=== PATIENT | female | born 1960 | race Caucasian/White ===

== ENCOUNTER → 2018-04-16 08:04 | Outpatient (CLI) | payer OTHER, SELFPAY ==
--- NOTE | 2018-04-16 08:07 | BI_ITS ---
MAMMOGRAPHY - BILATERAL SCREENING REASON FOR EXAM: Female, 57 years old. Routine annual screening examination. PERTINENT HISTORY: Non-contributory. TECHNIQUE: Digital bilateral breast mainor (3D mammographic acquisition) in the CC and MLO projections. 2-D mediolateral oblique (MLO) and craniocaudad (CC) views of both breasts were obtained. CAD: Full Field Digital Mammography with Computer Added Detection was performed. COMPARISON: Comparison is made with prior study dated March 13, 2017 and February 11, 2016. FINDINGS: Breast Composition: The breasts are heterogeneously dense, which may obscure small masses. There are no dominant masses or suspicious calcifications. Stable scattered bilateral calcifications. No other significant abnormalities are identified. There has been no significant change since the prior study. BI/SCREENING MAMM (CAD), BILAT IMPRESSION: Stable bilateral screening mammogram. Yearly follow-up mammogram recommended. (A) ASSESSMENT CATEGORY: BIRADS Category 2: Benign. A letter regarding these results will be sent to the patient by the facility within 30 days. Approximately 10% of breast cancers are not detected by mammography. A normal mammogram should not delay biopsy of a clinically suspicious abnormality. [id number] Electronically Signed: Hector Bundy MD at 10:38 EST , Service support ,
== END ==
PROVIDERS: Family Provider Internal Medicine; PCP Internal Medicine; Referring Provider Obstetrics & Gynecology; Visit Provider Obstetrics & Gynecology
DX: Z12.31 Encounter for screening mammogram for malignant neoplasm of breast (principal)
CPT/HCPCS: 77063; 77067

== ENCOUNTER → 2019-04-24 07:59 | Outpatient (CLI) | payer OTHER, SELFPAY ==
--- NOTE | 2019-04-24 08:03 | BI_ITS ---
MAMMOGRAPHY - BILATERAL SCREENING REASON FOR EXAM: Female, 58 years old. Routine annual screening examination. PERTINENT HISTORY: Non-contributory. TECHNIQUE: Digital bilateral breast valeriy (3D mammographic acquisition) in the CC and MLO projections. 2-D mediolateral oblique (MLO) and craniocaudad (CC) views of both breasts were obtained. CAD: Full Field Digital Mammography with Computer Added Detection was performed. COMPARISON: Comparison is made with prior examination dated April 16, 2018 and March 13, 2017. FINDINGS: Breast Composition: The breasts are heterogeneously dense, which may obscure small masses. There are no dominant masses or suspicious calcifications. Stable scattered bilateral microcalcifications. There is no evidence of cluster. No other significant abnormalities are identified. There has been no significant change since the prior study. BI/SCREEN MAMM (CAD) W/VALERIY BILAT IMPRESSION: Stable bilateral screening mammogram. Yearly follow-up mammogram recommended. (A) ASSESSMENT CATEGORY: BIRADS Category 2: Benign. A letter regarding these results will be sent to the patient by the facility within 30 days. Approximately 10% of breast cancers are not detected by mammography. A normal mammogram should not delay biopsy of a clinically suspicious abnormality. [id number] Electronically Signed: Hector Bundy, at 9:01 EST , Service support ,
== END ==
PROVIDERS: Family Provider Internal Medicine; PCP Internal Medicine; Referring Provider Obstetrics & Gynecology; Visit Provider Obstetrics & Gynecology
DX: Z12.31 Encounter for screening mammogram for malignant neoplasm of breast (principal)
CPT/HCPCS: 77063; 77067

== ENCOUNTER → 2020-06-28 08:20 | Outpatient (CLI) | payer BC, SELFPAY ==
[2019-12-15 16:12] VITALS: BMI 25.6
--- NOTE | 2020-06-28 08:25 | BI_ITS ---
MAMMOGRAPHY - BILATERAL SCREENING REASON FOR EXAM: Female, 60 years old. Routine annual screening examination. PERTINENT HISTORY: Non-contributory. TECHNIQUE: Digital bilateral breast valeriy (3D mammographic acquisition) in the CC and MLO projections. 2-D mediolateral oblique (MLO) and craniocaudad (CC) views of both breasts were obtained. CAD: Full Field Digital Mammography with Computer Added Detection was performed. COMPARISON: Comparison is made with prior study dated 04/24/2019 and 04/16/2018. FINDINGS: Breast Composition: The breasts are heterogeneously dense, which may obscure small masses. There are no dominant masses or suspicious calcifications. Stable scattered bilateral microcalcifications. Stable benign appearing bilateral axillary lymph nodes. No other significant abnormalities are identified. There has been no significant change since the prior study. BI/SCRN MAMM (CAD)W/VALERIY BILAT IMPRESSION: Stable bilateral screening mammogram. Yearly follow-up mammogram recommended. (A) ASSESSMENT CATEGORY: BIRADS Category 2: Benign. A letter regarding these results will be sent to the patient by the facility within 30 days. Approximately 10% of breast cancers are not detected by mammography. A normal mammogram should not delay biopsy of a clinically suspicious abnormality. [id number] Electronically Signed: Hector Bundy MD at 9:14 EDT , Service support ,
== END ==
PROVIDERS: PCP Internal Medicine; Referring Provider Obstetrics & Gynecology; Visit Provider Obstetrics & Gynecology
DX: Z12.31 Encounter for screening mammogram for malignant neoplasm of breast (principal)
CPT/HCPCS: 77063; 77067

== ENCOUNTER 2020-11-13 16:34 | Emergency (ER) | payer BC, SELFPAY ==
[2020-11-13 16:36] VITALS: BP 211/119; PULSE 95; RESP 18; TEMP 37.4; O2SAT 97; BMI 25.4
--- NOTE | 2020-11-13 17:28 | RAD_ITS ---
STUDY: X-RAY CHEST REASON FOR EXAM: Female, 60 years old. syncope TECHNIQUE: PA and lateral COMPARISON: None. FINDINGS: The lungs are clear and expanded. There is no demonstrated pleural abnormality. Normal size heart. Normal mediastinum and anthony. Normal visualized pulmonary arteries. Normal visualized aortic arch and descending thoracic aorta. Dorsal spine demonstrates mild spondylosis. Normal visualized ribs, clavicles, and shoulders. There is no demonstrated abnormality of the visualized soft tissue structures of the upper abdomen. RAD/Chest PA and Lateral IMPRESSION: No acute cardiopulmonary pathology. Electronically Signed: Augusto Lopez MD at 21:02 EDT , Service support ,
--- NOTE | 2020-11-13 17:28 | EKG12_ITS ---
Test Reason : SYNCOPE Blood Pressure : / mmHG Vent. Rate : 083 BPM Atrial Rate : 083 BPM P-R Int : 128 ms QRS Dur : 082 ms QT Int : 374 ms P-R-T Axes : 049 029 046 degrees QTc Int : 439 ms Normal sinus rhythm Normal ECG Confirmed by GURDEEP FIELD, JOSIAH ([id number]), editor book CONSTANTINO VARGAS ([id number]) on 11/15/2020 8:56:07 AM Referred By: LISA Confirmed By:JOSIAH MACKENZIE MD
--- NOTE | 2020-11-13 17:54 | EX.ED.DYSGE1 ---
HPI History of Present Illness Chief Complaint: Syncope Informant: patient Narrative Narrative: Patient is a 60-year-old female with history of IBS, hypertension and hyperlipidemia presenting after syncopal episode. Patient states last night around 230 she got up at night to have a glass of water. She was standing at the sink which started feel lightheaded. Patient states she felt woozy. She remembers she woke up on the ground. She got herself up and took her self to bed. Patient did cut the back of her head on the corner of an [employer] telephone stand. She currently has a mild headache. She denies any history of syncope. She is unaware last tetanus shot is but states she does not want another one because she does not like them. She is not on any oral anticoagulation. She thinks that maybe her blood sugar was low or she was just dehydrated. Her states that she come to emergency room to get evaluated further. She currently denies any other complaints. [facility] Medical History (Updated 11/13/20 @ 21:[address] Karuna Pérez, DO) Anemia GERD (gastroesophageal reflux disease) GI problem History of migraine headaches Hypertension Hypertriglyceridemia IBS (irritable bowel syndrome) Multiple sclerosis Osteopenia Home Medications promethazine 25 mg PO Q6H PRN PRN #20 tab 07/27/15 [Rx Last Taken Unknown] ashwaghanda PO 12/10/19 [History Last Taken Unknown] folic acid-vit B6-vit B12 0.8 mg-50 mg-100 mcg tablet 1 tab PO DAILY 12/10/19 [History Last Taken Unknown] magnesium glycinate 100 mg tablet 100 mg PO DAILY 12/10/19 [History Last Taken Unknown] fqzlpltf-ohcoatis-yilbsezt 3 mg-lutein 3 mg-herbal no219 200 mg tablet tab PO 12/10/19 [History Last Taken Unknown] omega 7-elw-she-fish oil 290 mg-430 mg-1.4 gram capsule cap PO 12/10/19 [History Last Taken Unknown] vitamin B complex 1 tab PO DAILY 12/10/19 [History Last Taken Unknown] vitamin D supreme PO 12/10/19 [History Last Taken Unknown] A-EB/H6 PO 06/14/20 [History Last Taken Unknown] ascorbic acid (vitamin C) 500 mg capsule mg PO BID cap 06/14/20 [History Last Taken Unknown] Allergy/AdvReac Type Severity Reaction Status Date / Time naproxen AdvReac Nausea Verified 11/13/20 16:34 tramadol HCl [From Ultram] AdvReac Nausea Verified 11/13/20 16:34 Family History Mother Arthritis Osteoporosis Thyroid disorder Father Myocardial infarction, Onset Age: 47 Heart disease Hypertension Hyperlipemia COPD (chronic obstructive pulmonary disease) Mononucleosis Brother Hypertension Grandmother CVA (cerebral vascular accident) Grandfather CVA (cerebral vascular accident) Social History Smoking Status: Never smoker alcohol intake: current alcohol intake frequency: holidays/special occasions only Alcohol type: wine substance use type: does not use what type of physical activity do you participate in: walking and running frequency: 1-2 times per week ROS ROS ED Constitutional Constitutional ED: Reports other Details: Positive lightheaded, syncope ; Denies chills, fever(s) or malaise Eyes Eyes: Denies blurry vision or loss of vision ENT ENT ED: Denies rhinorrhea or sore throat Cardiovascular Cardiovascular: Denies chest pain or dizziness Respiratory/Chest Respiratory/Chest: Denies cough or dyspnea Gastrointestinal Gastrointestinal: Denies nausea or vomiting Genitourinary Genitourinary ED: Denies dysuria or hematuria Musculoskeletal Musculoskeletal: Denies arthralgias or myalgias Integumentary Reports Abrasions; Denies rash or wounds Neurologic Neurologic: Reports headache(s); Denies focal weakness Psychiatric Psychiatric: Denies anxiety or behavioral changes EXAM Physical Exam Const Vital Signs: 11/13/20 16:36 11/13/20 18:12 11/13/20 20:31 Temperature 99.3 F H Temperature Source Temporal Pulse Rate 95 85 Pulse Rate [Lying] 91 Pulse Rate [Sitting] 85 Pulse Rate [Standing] 91 Respiratory Rate 18 16 Blood Pressure 211/119 H 217/116 H 168/97 H Blood Pressure [Lying] 210/106 H Blood Pressure [Sitting] 217/116 H Blood Pressure [Standing] 218/121 H Blood Pressure Mean 149 149 120 Blood Pressure Mean [Lying] 140 Blood Pressure Mean [Sitting] 149 Blood Pressure Mean [Standing] 153 Pulse Ox 97 100 Oxygen Delivery Method Room Air Room Air 11/13/20 21:20 Temperature Temperature Source Pulse Rate 76 Pulse Rate [Lying] Pulse Rate [Sitting] Pulse Rate [Standing] Respiratory Rate 16 Blood Pressure 151/94 H Blood Pressure [Lying] Blood Pressure [Sitting] Blood Pressure [Standing] Blood Pressure Mean 113 Blood Pressure Mean [Lying] Blood Pressure Mean [Sitting] Blood Pressure Mean [Standing] Pulse Ox 98 Oxygen Delivery Method Room Air Positive well nourished, well developed and no apparent distress General Appearance ED: well developed HEENT Reports normocephalic, TM's clear and moist mucous membranes HEENT Narrative: Small hematoma at the vertex of the scalp with overlying abrasion, no active bleeding atraumatic and trauma Nose: no nasal discharge External Ear: external ears normal Tympanic Membrane ED: Yes TM's clear Mouth ED: Yes moist mucous membranes normal Eyes PERRL and EOMs intact bilaterally Neck full ROM, supple and no meningeal signs Chest Wall inspection of chest normal Resp normal respiratory effort, normal air movement and clear to auscultation bilaterally Cardio regular rate and regular rhythm GI normal to inspection, nondistended, normoactive bowel sounds Extremity normal to inspection and full ROM Neuro oriented x3, CN's II-XII intact bilaterally, no focal motor deficits and no sensory deficits noted Sensorium / Orientation: alert Motor Exam: strength 5/5 throughout; Negative for general weakness Psych mental status grossly normal and thought process normal Skin no rashes or lesions noted Skin Narrative: 2 cm linear laceration at the vertex of the scalp. Wound edges closely approximated. No active bleeding. MDM MDM MDM Narrative Medical decision making narrative: Patient evaluated for syncopal episode that happened at 2:30 in the morning, over 12 hours prior to arrival. Patient currently has no complaints except for mild headache. She is hypertensive on arrival. This improves in the ER without any intervention. She states that she does have a history of hypertension also gets nervous about being in the ER as well as being under more stress lately. Cardiac work-up is largely negative. Chest x-ray does not show any acute process. CT of the brain does not show any acute traumatic injury. Patient declines tetanus in the emergency room. She does have a laceration to her scalp but as we are greater than 12 hours out and she is no longer bleeding, will defer primary closure and let heal by secondary intent. Patient is agreeable with this. Patient will follow up with her PCP for her hypertension as well as this episode of syncope. She is counseled on return precautions. Patient and verbalized agreement understand with this plan. Lab Data Attestation: I reviewed the patient's lab results. Labs: Laboratory Results - last 24 hr 11/13/20 11/13/20 18:07 18:07 WBC 5.0 RBC 4.16 L Hgb 12.5 Hct 37.2 MCV 89.4 MCH 30.0 MCHC 33.6 RDW Std Deviation 44.6 H RDW Coeff of Shiela 13.6 Plt Count 218 MPV 9.2 Immature Gran % (Auto) 0.200 Neut % (Auto) 55.7 Lymph % (Auto) 32.7 [place] % (Auto) 8.2 Eos % (Auto) 2.6 Baso % (Auto) 0.6 Absolute Neuts (auto) 2.8 Absolute Lymphs (auto) 1.63 Nucleated RBC % 0 Sodium 141 Potassium 3.7 Chloride 105 Carbon Dioxide 28.0 Anion Gap 8 BUN 12 Creatinine 0.82 Estim Creat Clear Calc 57.70 Est GFR (MDRD) Af Amer 91 Est GFR (MDRD) Non-Af 75 BUN/Creatinine Ratio 14.6 Glucose 88 Calcium 9.1 Total Bilirubin 0.40 AST 62 H ALT 102 H Alkaline Phosphatase 96 Troponin I High Sens 8 Total Protein 7.6 Albumin 4.1 Globulin 3.5 Albumin/Globulin Ratio 1.2 Radiography Chest X-Ray - ED: 1 View, Read by ED Physician, Read by Radiologist and No Acute Disease Diagnostic Testing: Radiology Impression Chest X-Ray 11/13/20 17:28 IMPRESSION: No acute cardiopulmonary pathology. Electronically Signed: Augusto Lopez MD at 21:02 EDT , Service support , Brain CT 11/13/20 19:10 IMPRESSION: 1. No acute abnormality, no trauma. 2. Mild to moderate chronic small vessel ischemic disease of white matter. Electronically Signed: Xu Bowles MD at 19:50 EDT Tel , Service support , Rhythm Strip Rhythm Strip: Sinus Rhythm Rate: 83 Ectopy: None EKG Initial EKG: Attestation: I personally reviewed and interpreted this EKG as follows: Interpretation: Sinus Rhythm Comments: Normal sinus rhythm at a rate of 83 Normal axis Normal intervals Normal ST segments Discharge Plan Triage Chief Complaint: Syncope ED Provider: Karuna Pérez Dx/Rx/DC Orders Clinical Impression: Syncope, Hypertension, Laceration of head Instructions: ED Head Injury (Adult), ED Hypertension, Established, ED Fainting, Uncertain Cause Prescriptions: No Action PhytoMulti 3-3-200 mg tablet PO RF: 0 Complex B-100 Tablet Extended Release 1 tab PO DAILY RF: 0 vitamin D supreme PO RF: 0 omega 1-mbk-azg-fish oil 290 mg-430 mg-1.4 gram capsule 290-430-1.4 mg-mg-gram capsule PO RF: 0 folic acid-vit B6-vit B12 0.8 mg-50 mg-100 mcg tablet 0.8-50-100 mg-mg-mcg tablet 1 tab PO DAILY RF: 0 magnesium glycinate 100 mg tablet 100 mg PO DAILY RF: 0 ashwaghanda PO RF: 0 ascorbic acid (vitamin C) 500 mg capsule PO BID RF: 0 A-EB/H6 PO RF: 0 promethazine 25 MG tablet 25 mg PO Q6H PRN PRN (Reason: Nausea) Qty: 20 RF: 0 Primary Care Provider: Freda Orr Referrals: Freda Orr MD [Primary Care Provider] - Disposition Disposition: Home, Self Care Discharge Date/Time: 11/13/20 21:24
[2020-11-13 18:12] VITALS: BP 210/106; BP 217/116; BP 218/121; PULSE 85; PULSE 91; RESP 16; O2SAT 100
[2020-11-13 18:17] LABS: Absolute Lymphocyte Count 1.63 X10^3/uL (0.83-4.51); Absolute Neutrophil Count 2.8 X10^3/uL (2.0-7.7); Basophil# 0.03 X10^3/uL; Basophil% 0.6 % (0-1); Eosinophil# 0.13 X10^3/uL; Eosinophils% 2.6 % (0-5); Hematocrit 37.2 % (37-47); Hemoglobin 12.5 g/dL (12.0-15.0); Lymphocyte # 1.63 X10^3/ul (0.83-4.51); Lymphocyte % 32.7 % (19-41); Mean Corp Hgb Conc 33.6 g/dL (32-36); Mean Corpuscular Volume 89.4 fL (81-99); Mean Platelet Vol. 9.2 fl (6.2-12.0); Monocyte# 0.41 X10^3/uL; Monocyte% 8.2 % (0-10); NRBC Flagged by Analyzer 0 % (0-5); Neutrophil # 2.78 X10^3/uL (2.7-7.7); Neutrophil % 55.7 % (47-70); Platelet Count 218 K/mm3 (150-450); RBC Distribution Width CV 13.6 % (11.6-14.6); RBC Distribution Width SD 44.6 fl (35.1-43.9); Red Blood Count 4.16 M/mm3 (4.2-5.4)
[2020-11-13 18:35] LABS: ALB/GLOB Ratio 1.2 RATIO (0.9-2.4); AST(SGOT) 62 U/L (15-37); Alanine Aminotransfer ALT/SGPT 102 U/L (13-56); Albumin, Serum 4.1 g/dL (3.2-5.0); Alkaline Phosphatase 96 U/L (45-117); Anion Gap 8 (5-15); BUN 12 mg/dL (7-18); BUN/Creat Ratio 14.6 RATIO (10-20); Calcium,Total 9.1 mg/dL (8.5-10.1); Chloride 105 mmol/L (98-107); Creatinine, Serum 0.82 mg/dL (0.55-1.02); EST Glomerular Filtration Rate 75 mL/min (>60); Est Glom Filt Rate - Afr Amer 91 mL/min (>60); Globulin 3.5 g/dL (2.2-4.2); Glucose 88 mg/dL (74-106); Potassium 3.7 mmol/L (3.5-5.1); Protein, Total 7.6 g/dL (6.4-8.2); Sodium Level 141 mmol/L (136-145); Troponin-I HS 8 pg/mL (3.0-54.0)
[2020-11-13 19:00] LABS: Mucous, Urine 0 SEEN /hpf (<or=2+); Red Blood Cells-Urine 0 SEEN /hpf (0-5); Squamous Epithelial Cells - UA 0 SEEN /hpf (5-10)
--- NOTE | 2020-11-13 19:10 | CT_ITS ---
STUDY: CT BRAIN WITHOUT CONTRAST REASON FOR EXAM: Female, 60 years old. Head injury RADIATION DOSAGE (If Supplied By Facility): CTDIvol = ( 44.99 ) mGy, DLP = ( 745.49 ) mGycm TECHNIQUE: Transaxial CT imaging of the brain was performed without administration of intravenous contrast material. Individualized dose optimization techniques were used for this CT. COMPARISON: 27 Jul 2015 FINDINGS: Brain parenchyma is without focal lesions, mass effect, acute intracranial hemorrhage, extra parenchymal fluid collections, hydrocephalus or herniation. There are scattered mild to moderate prominently subcortical white matter hypodensities. The skull is intact. There is a small left parietal scalp hematoma. CT/Brain/Head without Contrast IMPRESSION: 1. No acute abnormality, no trauma. 2. Mild to moderate chronic small vessel ischemic disease of white matter. Electronically Signed: Xu Bowles MD at 19:50 EDT Tel , Service support ,
[2020-11-13 20:31] VITALS: BP 168/97
[2020-11-13 21:20] VITALS: BP 151/94; PULSE 76; RESP 16; O2SAT 98; O2SAT 99
[2020-11-13 23:11] LABS: Bacteria RARE /hpf (None Seen); Color, Urine Straw (Yellow); Glucose, Dipstick NEGATIVE (Normal); Ketone-Dipstick Negative (Negative); Leukocyte Esterase-Dipstick 100 /ul (Negative); Nitrite-Dipstick Negative (Negative); Occult Blood-Urine 10 /ul (Negative); Protein-Dipstick Negative (Negative); Specific Gravity, Urine 1.005 (1.002-1.030); Urine Bilirubin Dipstick Negative (Negative); Urine Clarity Clear (Clear); Urine Urobilinogen Normal (Normal); Urine pH 6.5 (5.0 - 8.0); White Blood Cells 0-5 SEEN /hpf (0-5)
== END 2020-11-13 21:24 | disposition home or self-care (01) ==
PROVIDERS: Emergency Provider Emergency Medicine; PCP Internal Medicine
DX: R55 Syncope and collapse (principal); I10 Essential (primary) hypertension; S01.91XA Laceration without foreign body of unspecified part of head, initial encounter; X58.XXXA Exposure to other specified factors, initial encounter
CPT/HCPCS: 70450; 71046; 80053; 81001; 84484; 85025; 93005; 99285; A4216

== ENCOUNTER → 2020-11-16 11:43 | Outpatient (CLI) | payer BC, SELFPAY ==
[2020-11-16 15:51] LABS: Vitamin D,25 Hydroxy 44.2 ng/mL
[2020-11-16 15:54] LABS: Hemoglobin A1c 5.3 % (3.8-5.6)
[2020-11-16 16:00] LABS: ALB/GLOB Ratio 1.1 RATIO (0.9-2.4); AST(SGOT) 62 U/L (15-37); Alanine Aminotransfer ALT/SGPT 100 U/L (13-56); Albumin, Serum 4.2 g/dL (3.2-5.0); Alkaline Phosphatase 95 U/L (45-117); Anion Gap 7 (5-15); BUN 15 mg/dL (7-18); BUN/Creat Ratio 17.9 RATIO (10-20); Calcium,Total 9.2 mg/dL (8.5-10.1); Chloride 104 mmol/L (98-107); Cholesterol 246 mg/dL (200); Creatinine, Serum 0.84 mg/dL (0.55-1.02); EST Glomerular Filtration Rate 74 mL/min (>60); Est Glom Filt Rate - Afr Amer 89 mL/min (>60); Globulin 3.8 g/dL (2.2-4.2); Glucose 89 mg/dL (74-106); High Density Lipoprotein 86 mg/dL; Potassium 4.1 mmol/L (3.5-5.1); Sodium Level 137 mmol/L (136-145); Triglycerides 52 mg/dL; Very Low Density Lipoprotein 10 mg/dL (5-40)
== END ==
PROVIDERS: PCP Internal Medicine; Referring Provider Internal Medicine; Visit Provider Internal Medicine
DX: I10 Essential (primary) hypertension (principal); E78.1 Pure hyperglyceridemia; R55 Syncope and collapse; M85.80 Other specified disorders of bone density and structure, unspecified site
CPT/HCPCS: 36415; 80053; 80061; 82306; 83036; 84443

== ENCOUNTER → 2020-12-03 08:53 | Outpatient (CLI) | payer BC, SELFPAY ==
--- NOTE | 2020-12-03 08:53 | US_ITS ---
EXAM: US ABDOMEN LIMITED, RIGHT UPPER QUADRANT CLINICAL INDICATION: Elevated LFT TECHNIQUE: Real-time ultrasound of the right upper quadrant with image documentation. This report was created using [employer] report generation technology. COMPARISON: None. FINDINGS: LIVER: Increased echogenicity of the liver is nonspecific but most commonly associated with hepatic steatosis. No hepatic masses. GALLBLADDER: Unremarkable. No shadowing gallstone. No gallbladder wall thickening is demonstrated. No pericholecystic fluid. Negative sonographic Mohr''s sign. COMMON BILE DUCT: Unremarkable as visualized. The proximal common bile duct is within normal limits for the patient''s age. PANCREAS: Slight increased echogenicity of the pancreas. No pancreatic ductal dilatation. RIGHT KIDNEY: Unremarkable. There is no hydronephrosis. No shadowing calculus. No focal lesion or perinephric collection is demonstrated. US/Liver IMPRESSION: Increased echogenicity of the liver is nonspecific but most commonly associated with hepatic steatosis. Electronically Signed: Prince Leigh MD (Brooks) at 18:48 EDT , Service support ,
== END ==
PROVIDERS: PCP Internal Medicine; Referring Provider Internal Medicine; Visit Provider Internal Medicine
DX: R79.89 Other specified abnormal findings of blood chemistry (principal)
CPT/HCPCS: 76705

== ENCOUNTER 2021-05-16 09:57 | Outpatient (CLI) | payer BC, SELFPAY ==
[2021-05-19 22:09] LABS: HPV APTIMA, High Risk Negative (Negative)
== END 2021-05-16 23:59 | disposition home or self-care (01) ==
LOC: LABSPEC 09:58
PROVIDERS: PCP Internal Medicine; Visit Provider Obstetrics & Gynecology
DX: Z12.4 Encounter for screening for malignant neoplasm of cervix (principal)
CPT/HCPCS: 87624; 88175; G0145

== ENCOUNTER 2021-06-29 08:53 | Outpatient (CLI) | payer BC, SELFPAY ==
--- NOTE | 2021-06-29 08:54 | BI_ITS ---
MAMMOGRAPHY - BILATERAL SCREENING 3-D TOMOSYNTHESIS REASON FOR EXAM: Female, 61 years old. SCREENING PERTINENT HISTORY: No significant family history. TECHNIQUE: 2-D mammograms and 3-D Tomosynthesis of the breast (s) were performed. CAD was performed. COMPARISON: 06/28/2020 FINDINGS: The breast composition is heterogeneously dense that can obscure small breast masses. Scattered benign calcifications are seen. No dense spiculated masses or suspicious microcalcifications are identified. No architectural distortion is identified. There is no skin thickening or retraction. There has been no significant change since the prior study. BI/SCRN MAMM (CAD)W/VALERIY BILAT IMPRESSION: No mammographic signs of malignancy. Routine yearly mammograms recommended. ASSESSMENT CATEGORY: BIRADS Category 1: Negative. A letter regarding these results will be sent to the patient by the facility within 30 days. FOLLOW UP RECOMMENDATION: Yearly follow up mammogram recommended. (A) Approximately 10% of breast cancers are not detected by mammography. A normal mammogram should not delay biopsy of a clinically suspicious abnormality. Electronically Signed: Ari Stephens MD at 10:01 EDT ,
== END 2021-06-29 23:59 | disposition home or self-care (01) ==
LOC: OPBI 08:53
PROVIDERS: PCP Internal Medicine; Referring Provider Obstetrics & Gynecology; Visit Provider Obstetrics & Gynecology
DX: Z12.31 Encounter for screening mammogram for malignant neoplasm of breast (principal)
CPT/HCPCS: 77063; 77067

== ENCOUNTER 2022-03-20 01:30 | Emergency (ER) | payer BC, SELFPAY ==
[2022-03-20 01:30] VITALS: BP 179/97; PULSE 81; RESP 16; TEMP 36.6; O2SAT 98; BMI 25.3
--- NOTE | 2022-03-20 01:52 | EKG12_ITS ---
Test Reason : DYSRHYTHMIA Blood Pressure : / mmHG Vent. Rate : 079 BPM Atrial Rate : 079 BPM P-R Int : 126 ms QRS Dur : 078 ms QT Int : 398 ms P-R-T Axes : 076 064 059 degrees QTc Int : 456 ms Normal sinus rhythm Normal ECG Confirmed by GURDEEP FIELD, JOSIAH ([id number]), graphics editor CONSTANTINO VARGAS ([id number]) on 03/21/2022 10:45:35 AM Referred By: LOR Confirmed By:JOSIAH MACKENZIE MD
--- NOTE | 2022-03-20 01:53 | ED.VIS.GI ---
HPI HPI - GI History of Present Illness Chief Complaint: Nausea/Vomiting Informant: patient and spouse/S.O. Abdominal Pain/Flank Pain Onset: Hours (3-4) Context: Gradual Onset Timing: Continuous Quality: Aching Location: Epigastric Current Severity: Moderate Maximum Severity: Moderate Worsened by: - (vomiting) Relieved by: Nothing Nausea/Vomiting/Emesis GI Symptom: Positive for Nausea and Vomiting Onset: Hours (3-4) Quality: Positive for Nonbilious; Negative for Blood streaks, Coffee ground or Hematemesis Severity: Severe Diarrhea/Melena/Hematochezia GI Symptom: Negative for Diarrhea, Melena or Hematochezia Associated Symptoms Associated Symptoms: Negative for Dysuria, Frequency or Hematuria Narrative Narrative: Patient has been vomiting food and gastric contents and light yellow/clear fluid for the past couple hours along with epigastric discomfort. No radiation into her back or elsewhere. No history of abdominal surgeries. States it feels like gastritis she had in the past. No recent alcohol use. Has been taking Excedrin Migraine most days of this past week, but no other OTC medications. No known sick contacts with similar symptoms. No fevers or chills. No diarrhea, but she has only been symptomatic for several hours. [facility] Medical History (Updated 03/20/22 @ 02:[address] Mook Newell MD) Anemia GERD (gastroesophageal reflux disease) GI problem History of migraine headaches Hypertension Hypertriglyceridemia IBS (irritable bowel syndrome) Multiple sclerosis Osteopenia Home Medications promethazine 25 mg tablet 25 mg PO Q6H PRN PRN Nausea #20 tabs 07/27/15 [Rx Last Taken Unknown] ashwaghanda PO 12/10/19 [History Last Taken Unknown] folic acid-vit B6-vit B12 0.8 mg-50 mg-100 mcg tablet (Homocysteine Formula) 1 tab PO DAILY 12/10/19 [History Last Taken Unknown] magnesium glycinate 100 mg tablet 100 mg PO DAILY 12/10/19 [History Last Taken Unknown] ddugyhkl-mnxiuquf-bwjgmcsc 3 mg-lutein 3 mg-herbal no219 200 mg tablet (PhytoMulti) tab PO 12/10/19 [History Last Taken Unknown] omega 2-xft-pcw-fish oil 290 mg-430 mg-1.4 gram capsule (EPA-DHA 720) cap PO 12/10/19 [History Last Taken Unknown] vitamin B complex (Complex B-100 tablet,extended release) 1 tab PO DAILY 12/10/19 [History Last Taken Unknown] vitamin D supreme PO 12/10/19 [History Last Taken Unknown] A-EB/H6 PO 06/14/20 [History Last Taken Unknown] ascorbic acid (vitamin C) 500 mg capsule mg PO BID 06/14/20 [History Last Taken Unknown] amlodipine 5 mg-olmesartan 20 mg tablet 1 tab PO DAILY #90 tabs 07/13/21 [Rx Last Taken Unknown] ondansetron 4 mg disintegrating tablet 8 mg PO Q8H PRN PRN Nausea #20 tabs 03/20/22 [Rx Last Taken Unknown] Allergy/AdvReac Type Severity Reaction Status Date / Time naproxen AdvReac Nausea Verified 03/20/22 01:33 tramadol HCl [From Ultram] AdvReac Nausea Verified 03/20/22 01:33 Family History Mother Arthritis Osteoporosis Thyroid disorder Father Myocardial infarction, Onset Age: 47 Heart disease Hypertension Hyperlipemia COPD (chronic obstructive pulmonary disease) Mononucleosis Brother Hypertension Grandmother CVA (cerebral vascular accident) Grandfather CVA (cerebral vascular accident) Social History Smoking Status: Never smoker alcohol intake: current alcohol intake frequency: holidays/special occasions only Alcohol type: wine substance use type: does not use what type of physical activity do you participate in: walking and running frequency: 1-2 times per week ROS ROS ED Constitutional Constitutional ED: Reports malaise; Denies chills or fever(s) Eyes Eyes: Denies change in vision or diplopia ENT ENT ED: Denies rhinorrhea or sore throat Cardiovascular Cardiovascular: Denies chest pain or palpitations Respiratory/Chest Respiratory/Chest: Denies cough or dyspnea Gastrointestinal Gastrointestinal: Reports abdominal pain, nausea and vomiting; Denies diarrhea Genitourinary Genitourinary ED: Denies dysuria or hematuria Musculoskeletal Musculoskeletal: Denies back pain or neck pain Integumentary Denies abscess or rash Neurologic Neurologic: Denies headache(s), paresthesias or weakness Psychiatric Psychiatric: Denies anxiety or suicidal thoughts EXAM Physical Exam Const Vital Signs: 03/20/22 01:30 03/20/22 04:15 Temperature 97.8 F Temperature Source Oral Pulse Rate 81 86 Respiratory Rate 16 16 Blood Pressure 179/97 H 141/88 H Blood Pressure Mean 124 Pulse Ox 98 97 Oxygen Delivery Method Room Air Positive well nourished and well developed General Appearance ED: well developed and NAD HEENT Reports moist mucous membranes normocephalic and atraumatic Eyes PERRL and EOMs intact bilaterally Neck full ROM and supple Resp normal respiratory effort and clear to auscultation bilaterally Cardio regular rate, regular rhythm and no murmurs GI non-distended GI Narrative: Tender in epigastrium, no guarding or rebound. No other areas of tenderness including right upper quadrant. Soft abdomen nondistended with normal bowel sounds present. Auscultation: normoactive bowel sounds Palpation: soft Back/Spine no CVA tenderness General Back: other FROM Extremity normal to inspection General Extremety ED: Negative for edema, pulses abnormal or tenderness General Extremity: Negative for edema or pulses abnormal Neuro oriented x3, CN's II-XII intact bilaterally and no sensory deficits noted Sensorium / Orientation: awake and alert Motor Exam: strength 5/5 throughout Skin no rashes or lesions noted and no wounds MDM MDM MDM Narrative Medical decision making narrative: Patient does potentially have gastritis but differential also includes biliary pathology, pancreatitis, atypical presentation of acute coronary syndrome. EKG interpreted by myself is normal with no acute ischemic abnormalities or dysrhythmias, and her troponin is also negative making this less likely to be cardiac related. The rest of her labs were all normal. Her white blood count is at the high end of the normal range with a slight trend toward left shift but no bands, her liver enzymes and lipase are all normal. Borderline prerenal azotemia but her renal function is normal. She was given fluids here, Zofran and and no other medications but on reevaluation is feeling much better. She is not having much in the way of any discomfort. Considering the possibility of biliary etiologies, I did a bedside ultrasound myself. She has a negative sonographic Mohr's, the gallbladder is firmly in the right upper quadrant and not the epigastrium, the gallbladder wall is grossly normal without any obvious evidence of pericholecystic fluid, nor does she have any cholelithiasis. Therefore my suspicion for this being biliary in etiology is much lower afterwards. She was given a p.o. challenge and tolerated it well. Certainly could be viral etiology here. Will be offered a GI cocktail/Mylanta prior to being discharged, will give her a prescription for Zofran and advised close outpatient follow-up or returning if worse. She is comfortable with that plan. Lab Data Attestation: I reviewed the patient's lab results. Labs: Laboratory Results - last 24 hr 03/20/22 03/20/22 02:00 02:00 WBC 10.5 RBC 4.34 Hgb 13.0 Hct 39.1 MCV 90.1 MCH 30.0 MCHC 33.2 RDW Std Deviation 43.4 RDW Coeff of Shiela 13.1 Plt Count 207 MPV 9.9 Immature Gran % (Auto) 0.500 Neut % (Auto) 86.2 H Lymph % (Auto) 7.6 L Harlan % (Auto) 4.7 Eos % (Auto) 0.6 Baso % (Auto) 0.4 Absolute Neuts (auto) 9.1 H Absolute Lymphs (auto) 0.80 L Nucleated RBC % 0 Sodium 138 Potassium 3.7 Chloride 103 Carbon Dioxide 28.0 Anion Gap 7 BUN 14 Creatinine 0.94 Estim Creat Clear Calc 49.71 Est GFR (MDRD) Af Amer 78 Est GFR (MDRD) Non-Af 65 BUN/Creatinine Ratio 15.0 Glucose 156 H Calcium 9.6 Total Bilirubin 0.50 AST 20 ALT 20 Alkaline Phosphatase 104 Troponin I High Sens 5 Total Protein 7.8 Albumin 4.5 Globulin 3.3 Albumin/Globulin Ratio 1.4 Lipase 59 L Rhythm Strip Rhythm Strip: Sinus Rhythm Rate: 80 Ectopy: None EKG Initial EKG: Attestation: I personally reviewed and interpreted this EKG as follows: Interpretation: Sinus Rhythm and No Acute Injury Pattern Comments: Normal EKG Discharge Plan Triage Chief Complaint: Nausea/Vomiting ED Provider: Mook Newell Dx/Rx/DC Orders Clinical Impression: Acute gastritis without bleeding, Acute epigastric pain Instructions: ED Gastritis (Adult), ED Epigastric Pain Uncertain Cause Prescriptions: New ondansetron [ondansetron] 4 MG tablet 8 mg PO Q8H PRN PRN (Reason: Nausea) Qty: 20 0RF No Action PhytoMulti 3-3-200 mg tablet PO Complex B-100 Tablet Extended Release 1 tab PO DAILY vitamin D supreme PO omega 7-wyz-amc-fish oil 290 mg-430 mg-1.4 gram capsule 290-430-1.4 mg-mg-gram capsule PO folic acid-vit B6-vit B12 0.8 mg-50 mg-100 mcg tablet 0.8-50-100 mg-mg-mcg tablet 1 tab PO DAILY magnesium glycinate 100 mg tablet 100 mg PO DAILY ashwaghanda PO ascorbic acid (vitamin C) 500 mg capsule PO BID Rx Instructions: 2 tabs BID A-EB/H6 PO Rx Instructions: 2 drops a day promethazine 25 MG tablet 25 mg PO Q6H PRN PRN (Reason: Nausea) Qty: 20 0RF amlodipine-olmesartan 5-20 mg tablet 1 tab PO DAILY Qty: 90 3RF Primary Care Provider: Freda Orr Referrals: Freda Orr MD [Primary Care Provider] - 3-5 Days if not improving Disposition Disposition: Home, Self Care
[2022-03-20] MEDS: Ondansetron 4 MG/2 ML Vial IV (02:06)
[2022-03-20] MEDS: 0.9% Normal Saline 1,000 ML 999 ML IV (02:06)
[2022-03-20 02:08] LABS: Absolute Neutrophil Count 9.1 X10^3/uL (2.0-7.7); Basophil# 0.04 X10^3/uL; Basophil% 0.4 % (0-1); Eosinophil# 0.06 X10^3/uL; Eosinophils% 0.6 % (0-5); Hematocrit 39.1 % (37-47); Lymphocyte % 7.6 % (19-41); Mean Corp Hgb Conc 33.2 g/dL (32-36); Mean Corpuscular Volume 90.1 fL (81-99); Mean Platelet Vol. 9.9 fl (6.2-12.0); Monocyte# 0.49 X10^3/uL; Monocyte% 4.7 % (0-10); NRBC Flagged by Analyzer 0 % (0-5); Neutrophil # 9.07 X10^3/uL (2.7-7.7); Neutrophil % 86.2 % (47-70); Platelet Count 207 K/mm3 (150-450); RBC Distribution Width CV 13.1 % (11.6-14.6); RBC Distribution Width SD 43.4 fl (35.1-43.9); Red Blood Count 4.34 M/mm3 (4.2-5.4); White Blood Count 10.5 K/mm3 (4.4-11.0)
[2022-03-20 02:30] LABS: ALB/GLOB Ratio 1.4 RATIO (0.9-2.4); AST(SGOT) 20 U/L (15-37); Alanine Aminotransfer ALT/SGPT 20 U/L (13-56); Albumin, Serum 4.5 g/dL (3.2-5.0); Alkaline Phosphatase 104 U/L (45-117); Anion Gap 7 (5-15); BUN 14 mg/dL (7-18); Calcium,Total 9.6 mg/dL (8.5-10.1); Chloride 103 mmol/L (98-107); Creatinine, Serum 0.94 mg/dL (0.55-1.02); EST Glomerular Filtration Rate 65 mL/min (>60); Est Glom Filt Rate - Afr Amer 78 mL/min (>60); Estimated Creatinine Clearance 49.71 ml/min; Globulin 3.3 g/dL (2.2-4.2); Glucose 156 mg/dL (74-106); Lipase 59 U/L (73-393); Potassium 3.7 mmol/L (3.5-5.1); Protein, Total 7.8 g/dL (6.4-8.2); Sodium Level 138 mmol/L (136-145); Troponin-I HS 5 pg/mL (3.0-54.0)
[2022-03-20 04:15] VITALS: BP 141/88; PULSE 86; RESP 16; O2SAT 97
== END 2022-03-20 04:19 | disposition home or self-care (01) ==
PROVIDERS: Emergency Provider Emergency Medicine; PCP Internal Medicine; Visit Provider Emergency Medicine
DX: K29.00 Acute gastritis without bleeding (principal); R10.13 Epigastric pain
CPT/HCPCS: 80053; 83690; 84484; 85025; 93005; 96374; 99283; J7030; A4216; J2405

== ENCOUNTER → 2022-03-26 | Outpatient (CLI) | payer BC, SELFPAY | END | disposition home or self-care (01) | LOC: LABSPEC 13:22 | PROVIDERS: PCP Internal Medicine; Visit Provider Internal Medicine | DX: Z20.822 Contact with and (suspected) exposure to COVID-19 (principal) | CPT/HCPCS: 87635; U0003; U0005 ==

== ENCOUNTER 2023-01-11 01:30 | Emergency (ER) | payer BC, SELFPAY ==
[2023-01-11 01:31] VITALS: BP 130/80; PULSE 67; RESP 12; TEMP 37.1; O2SAT 98; BMI 25.9
--- NOTE | 2023-01-11 01:44 | EKG12_ITS ---
Test Reason : COLD Blood Pressure : / mmHG Vent. Rate : 064 BPM Atrial Rate : 064 BPM P-R Int : 138 ms QRS Dur : 082 ms QT Int : 422 ms P-R-T Axes : 054 034 038 degrees QTc Int : 435 ms Normal sinus rhythm Normal ECG Confirmed by PJ FIELD, DEMETRIUS ([id number]), order editor REHAN CORONA ([id number]) on 01/21/2023 7:41:57 AM Referred By: Confirmed By:MARY OLIVA MD
--- NOTE | 2023-01-11 01:45 | EDS_ITS ---
HPI History of Present Illness Chief Complaint: Cold Sx Informant: patient, spouse/S.O. and EMS Narrative Narrative: Patient presents after 2 syncopal episodes tonight. They were separate from each other. Each one of them occurred while she was sitting on the toilet going to the bathroom. She remembers pushing to go to the bathroom and feeling lightheaded, putting her face and her hands, and then passing out falling off of the toilet bowl at times. One time the thinks that she may have bumped her head on a nearby piece of furniture. He states she did not look like she was breathing and so he did chest compressions which made her start breathing again. Patient denies having a headache, vision trouble, or focal neurologic symptoms at this time. She states for the past 2 days she has had a runny nose, cough, sinus pain, headaches off and on, and felt like she had a fever at 1 point but did not check it, this all started after she had a crown placed in a left mandibular tooth and initially she thought it was related to that. Some nausea but no vomiting or diarrhea. No chest pain or abdominal pain. No dyspnea. No production of the cough. Has been drinking fluids, but less than usual. [facility] Medical History (Updated 01/11/23 @ 03:[address] Mook Newell MD) Anemia GERD (gastroesophageal reflux disease) GI problem History of migraine headaches Hypertension Hypertriglyceridemia IBS (irritable bowel syndrome) Multiple sclerosis Osteopenia Home Medications promethazine 25 mg tablet 25 mg PO Q6H PRN PRN Nausea #20 tabs 07/27/15 [Rx Last Taken Unknown] ashwaghanda PO 12/10/19 [History Last Taken Unknown] folic acid-vit B6-vit B12 0.8 mg-50 mg-100 mcg tablet (Homocysteine Formula) 1 tab PO DAILY 12/10/19 [History Last Taken Unknown] magnesium glycinate 100 mg tablet 100 mg PO DAILY 12/10/19 [History Last Taken Unknown] wgavtzql-nijhxbjm-gtvnolvy 3 mg-lutein 3 mg-herbal no219 200 mg tablet (PhytoMulti) tab PO 12/10/19 [History Last Taken Unknown] omega 6-mnp-kjf-fish oil 290 mg-430 mg-1.4 gram capsule (EPA-DHA 720) cap PO 12/10/19 [History Last Taken Unknown] vitamin B complex (Complex B-100 tablet,extended release) 1 tab PO DAILY 12/10/19 [History Last Taken Unknown] vitamin D supreme PO 12/10/19 [History Last Taken Unknown] A-EB/H6 PO 06/14/20 [History Last Taken Unknown] ascorbic acid (vitamin C) 500 mg capsule mg PO BID 06/14/20 [History Last Taken Unknown] amlodipine 5 mg-olmesartan 20 mg tablet 1 tab PO DAILY #90 tabs 07/13/21 [Rx Last Taken Unknown] ondansetron 4 mg disintegrating tablet 8 mg (2 x 4 mg) PO Q8H PRN PRN Nausea #20 tabs 03/20/22 [Rx Last Taken Unknown] Allergy/AdvReac Type Severity Reaction Status Date / Time naproxen AdvReac Nausea Verified 01/11/23 01:31 tramadol HCl [From Ultram] AdvReac Nausea Verified 01/11/23 01:31 Family History Mother Arthritis Osteoporosis Thyroid disorder Father Myocardial infarction, Onset Age: 47 Heart disease Hypertension Hyperlipemia COPD (chronic obstructive pulmonary disease) Mononucleosis Brother Hypertension Grandmother CVA (cerebral vascular accident) Grandfather CVA (cerebral vascular accident) Social History Smoking Status: Never smoker alcohol intake: current alcohol intake frequency: holidays/special occasions only Alcohol type: wine substance use type: does not use what type of physical activity do you participate in: walking and running frequency: 1-2 times per week ROS ROS ED Constitutional Constitutional ED: Reports fever(s), malaise and subjective; Denies chills Eyes Eyes: Denies change in vision or diplopia ENT ENT ED: Reports rhinorrhea and other Details: Left-sided facial pain, currently not present ; Denies dental pain, ear pain or sore throat Cardiovascular Cardiovascular: Denies chest pain or palpitations Respiratory/Chest Respiratory/Chest: Reports cough; Denies dyspnea Gastrointestinal Gastrointestinal: Reports nausea; Denies abdominal pain, diarrhea or vomiting Genitourinary Genitourinary ED: Denies dysuria or hematuria Musculoskeletal Musculoskeletal: Denies back pain or neck pain Integumentary Denies abscess or rash Neurologic Neurologic: Reports other Details: Headaches, currently not present ; Denies paresthesias or weakness Psychiatric Psychiatric: Denies anxiety or suicidal thoughts EXAM Physical Exam Const Vital Signs: 01/11/23 01:31 01/11/23 01:35 Temperature 98.7 F Temperature Source Oral Pulse Rate 67 Respiratory Rate 12 Respiratory Effort Normal Respiratory Pattern Normal Blood Pressure 130/80 H Blood Pressure Mean 96 Pulse Ox 98 Oxygen Delivery Method Room Air Positive well nourished and well developed General Appearance ED: well developed and NAD HEENT Reports moist mucous membranes HEENT Narrative: No dental tenderness. No signs of any dental infection or abscess. No trismus. Normal intraoral exam. Normal TMs no hemotympanum. No swan sign. No signs of trauma or palpable areas of tenderness in the scalp. No raccoon eyes no signs of facial trauma/tenderness. normocephalic and atraumatic Eyes PERRL and EOMs intact bilaterally Neck full ROM and supple Chest Wall inspection of chest normal and palpation of chest normal Resp normal respiratory effort and clear to auscultation bilaterally Cardio regular rate, regular rhythm and no murmurs GI non-tender and non-distended Auscultation: normoactive bowel sounds Palpation: soft Back/Spine no CVA tenderness General Back: other FROM Extremity normal to inspection General Extremety ED: Negative for edema, pulses abnormal or tenderness General Extremity: Negative for edema or pulses abnormal Neuro oriented x3, CN's II-XII intact bilaterally and no sensory deficits noted Sensorium / Orientation: awake and alert Motor Exam: strength 5/5 throughout Psych mental status grossly normal Skin no rashes or lesions noted and no wounds MDM MDM MDM Narrative Medical decision making narrative: EKG obtained and it is normal. She has a heart rate low in the normal in the low 60s, consistent with the history of what is likely vasovagal syncope x2 tonight. Her URI was swabbed for COVID and flu, and she has positive COVID. She has only had symptoms for couple days, so I do not think that she had a syncopal episode because of the DVT/PE, the history for both of these episodes is consistent with a vasovagal response, and she is not tachycardic or hypoxemic. She has a history of MS, but is on nothing for it and it is dormant. Specifically she takes no immunosuppressive medications or steroids, and does not have any other major medical problems that would make her higher risk for COVID complications/hospitalization. She is unvaccinated but that is not a criterion for the antivirals which she does not meet criteria for right now. Given appropriate discharge instructions and advised to stay hydrated. She is comfortable with that plan. Rhythm Strip Rhythm Strip: Sinus Rhythm Rate: 60 Ectopy: None EKG Initial EKG: Attestation: I personally reviewed and interpreted this EKG as follows: Interpretation: Sinus Rhythm and No Acute Injury Pattern Comments: nml EKG Discharge Plan Triage Chief Complaint: Cold Sx Other Complaint: Nausea/Vomiting ED Provider: Mook Newell Dx/Rx/DC Orders Clinical Impression: COVID-19, Vasovagal syncope Instructions: Coronavirus Disease 2019 (COVID-19): Caring for Yourself or Others, ED Fainting, Vagal Reaction Prescriptions: No Action PhytoMulti 3-3-200 mg tablet PO Complex B-100 Tablet Extended Release 1 tab PO DAILY vitamin D supreme PO omega 5-ase-pcl-fish oil 290 mg-430 mg-1.4 gram capsule 290-430-1.4 mg-mg-gram capsule PO folic acid-vit B6-vit B12 0.8 mg-50 mg-100 mcg tablet 0.8-50-100 mg-mg-mcg tablet 1 tab PO DAILY magnesium glycinate 100 mg tablet 100 mg PO DAILY ashwaghanda PO ascorbic acid (vitamin C) 500 mg capsule PO BID Rx Instructions: 2 tabs BID A-EB/H6 PO Rx Instructions: 2 drops a day promethazine 25 MG tablet 25 mg PO Q6H PRN PRN (Reason: Nausea) Qty: 20 0RF ondansetron [ondansetron] 4 MG tablet 8 mg PO Q8H PRN PRN (Reason: Nausea) Qty: 20 0RF amlodipine-olmesartan 5-20 mg tablet 1 tab PO DAILY Qty: 90 3RF Stand Alone Forms: ED Work / School Excuse Primary Care Provider: Freda Orr Referrals: Freda Orr MD [Primary Care Provider] - As Needed Activity Restrictions/Additional Instructions: Try to get a home portable pulse oximeter and closely watch your oxygen levels periodically. If you stay below 90% for more than a minute or so, and/or you are feeling like your breathing is getting worse, return to the emergency department for further evaluation. Currently, CDC recommendations state that you should stay home through day 5 of symptoms, then as long as symptoms are improving, if you need to go to work or somewhere else you may for days 6-10 as long as you are wearing a mask the entire time. If you are feeling better after day 10 you may resume life is normal. Disposition Disposition: Home, Self Care
[2023-01-11] MEDS: 0.9% Normal Saline (1000mL) 1,000 ML 999 ML IV (02:05)
[2023-01-11 03:32] VITALS: PULSE 71; RESP 18; O2SAT 98
== END 2023-01-11 03:32 | disposition home or self-care (01) ==
PROVIDERS: Emergency Provider Emergency Medicine; PCP Internal Medicine; Visit Provider Emergency Medicine
DX: U07.1 COVID-19 (principal); R55 Syncope and collapse
CPT/HCPCS: 87428; 93005; 99285; J7030; A4216

== ENCOUNTER → 2023-01-16 | Outpatient (CLI) | payer BC, SELFPAY ==
--- NOTE | 2023-01-16 13:05 | CT_ITS ---
STUDY: CT BRAIN WITHOUT CONTRAST REASON FOR EXAM: Female, 62 years old. Fall, vagal episode, hit head - headache RADIATION DOSAGE (If Supplied By Facility): CTDIvol = ( 44.99 ) mGy, DLP = ( 745.49 ) mGycm TECHNIQUE: Transaxial CT imaging of the brain was performed without administration of intravenous contrast material. Individualized dose optimization techniques were used for this CT. COMPARISON: Comparison is made with prior examination dated November 13, 2020. FINDINGS: Normal soft tissue structures. Normal calvarium. There is mild cerebral atrophy with widening of the extra-axial spaces and ventricular dilatation. There are areas of decreased attenuation within the white matter tracts of the supratentorial brain, consistent with microvascular disease changes. Normal basal ganglia and thalami. Normal brainstem. Normal cerebellum. There is no intracranial hemorrhage. There are no findings of an acute ischemic infarction. Atherosclerotic calcification of the cavernous portions of the internal carotid arteries bilaterally. Normal visualized paranasal sinuses. CT/Brain/Head without Contrast IMPRESSION: Chronic involutional changes of the brain. Electronically Signed: Hector Bundy MD at 13:34 EST ,
== END | disposition home or self-care (01) ==
PROVIDERS: PCP Internal Medicine; Referring Provider Internal Medicine; Visit Provider Internal Medicine
DX: R55 Syncope and collapse (principal); I10 Essential (primary) hypertension; U07.1 COVID-19
CPT/HCPCS: 70450

== ENCOUNTER → 2023-04-25 | Outpatient (CLI) | payer BC, SELFPAY ==
--- NOTE | 2023-04-25 08:51 | BI_ITS ---
MAMMOGRAPHY - BILATERAL SCREENING REASON FOR EXAM: Female, 62 years old. Routine annual screening examination. PERTINENT HISTORY: Non-contributory. TECHNIQUE: Digital bilateral breast valeriy (3D mammographic acquisition) in the CC and MLO projections. 2-D mediolateral oblique (MLO) and craniocaudad (CC) views of both breasts were obtained. CAD: Full Field Digital Mammography with Computer Added Detection was performed. COMPARISON: Comparison is made with prior study dated June 29, 2021 and June 28, 2020. FINDINGS: Breast Composition: The breasts are heterogeneously dense, which may obscure small masses. There are no dominant masses or suspicious calcifications. Stable benign-appearing bilateral axillary lymph nodes. No other significant abnormalities are identified. There has been no significant change since the prior study. BI/SCRN MAMM (CAD)W/VALERIY BILAT IMPRESSION: Stable bilateral screening mammogram. Yearly follow-up mammogram recommended. (A) ASSESSMENT CATEGORY: BIRADS Category 2: Benign. A letter regarding these results will be sent to the patient by the facility within 30 days. Approximately 10% of breast cancers are not detected by mammography. A normal mammogram should not delay biopsy of a clinically suspicious abnormality. [id number] Electronically Signed: Hector Bundy MD at 10:46 EST ,
== END | disposition home or self-care (01) ==
LOC: OPBI 08:49
PROVIDERS: PCP Internal Medicine; Referring Provider Obstetrics & Gynecology; Visit Provider Obstetrics & Gynecology
DX: Z12.31 Encounter for screening mammogram for malignant neoplasm of breast (principal)
CPT/HCPCS: 77063; 77067